=== PATIENT | female | born 1960 | race Caucasian/White ===

== ENCOUNTER 2021-09-02 04:28 | Day surgery (SDC) | payer OTHER ==
[2021-09-01 13:51] VITALS: BMI 25.7
[2021-09-02 10:59] VITALS: BP 111/48; PULSE 55
[2021-09-02 11:15] VITALS: TEMP 97.2
== END 2021-09-02 11:39 | disposition home or self-care (01) ==
LOC: JASU-ENDO 04:28
PROVIDERS: ATTEND Internal Medicine Gastroenterology
PROC: 0DJD8ZZ Inspection of Lower Intestinal Tract, Via Natural or Artificial Opening Endoscopic (ICD-10-PCS; principal; 2021-09-02 09:30)
DX: Z12.11 Encounter for screening for malignant neoplasm of colon (principal); K57.30 Diverticulosis of large intestine without perforation or abscess without bleeding; K64.8 Other hemorrhoids; Z86.010 Personal history of colon polyps